=== PATIENT | male | born 1995 | race Caucasian/White ===

== ENCOUNTER 2017-04-14 14:05 | Emergency (ER) | payer OTHER ==
--- NOTE | 2017-04-14 15:06 | EDM.PDOC ---
ED HPI GENERAL MEDICAL PROBLEM - General Chief Complaint: Upper Extremity Injury/Pain Stated Complaint: LEFT POINTER FINGER CUT Time Seen by Provider: 04/14/17 15:08 Source of Information: Reports: Patient History Limitations: Reports: No Limitations - History of Present Illness INITIAL COMMENTS - FREE TEXT/NARRATIVE: HISTORY AND PHYSICAL: History of present illness: [Patient comes to the emergency room complaining of a crush injury to his left index finger. Was hauling pipes with a coworker when his finger was smashed between 2 pipes. Complained of immediate pain and bleeding. Occurred about one hour prior to ER arrival.] Review of systems: As per history of present illness and below otherwise all systems reviewed and negative. Past medical history: As per history of present illness and as reviewed below otherwise noncontributory. Surgical history: As per history of present illness and as reviewed below otherwise noncontributory. Social history: No reported history of drug or alcohol abuse. Family history: As per history of present illness and as reviewed below otherwise noncontributory. Physical exam: HEENT: Atraumatic, normocephalic. Extremities: L index finger shows a superficial laceration to base of fingernail. Questionable fingernail avulsion. No injury or laceration to palmar side of hand. Remaining fingers are atraumatic. Neuro: Awake, alert, oriented. Motor and sensory unremarkable throughout. Exam nonfocal. Diagnostics: [L index finger x-ray] Impression: [L index finger pain s/p crush injury] Plan: [Discussed with patient that his x-ray shows no fractures. Dr. Carolina Silverman agrees to see patient in the clinic at 7:30 tomorrow morning. Patient is agreeable to this appointment. Bacitracin is applied and the wound is dressed with sterile 4 x 4's and tube gauze. His tetanus is up-to-date. Tylenol or ibuprofen for discomfort. He is in agreement with today's plan. All questions are answered and concerns are addressed.] Definitive disposition and diagnosis as appropriate pending reevaluation and review of above. Left 2-Index finger Pain Score (Numeric/FACES): 4 - Related Data Allergies Allergy/AdvReac Type Severity Reaction Status Date / Time No Known Allergies Allergy Verified 04/14/17 14:44 Home Meds: Home Meds . [No Known Home Meds] 04/14/17 [History] Past Medical History - Past Health History Medical/Surgical History: Denies Medical/Surgical History Social & Family History - Family History Family Medical History: Noncontributory - Tobacco Use Smoking Status *Q: Current Every Day Smoker Years of Tobacco use: 5 Packs/Tins Daily: 0.5 - Caffeine Use Caffeine Use: Reports: Coffee, Soda - Recreational Drug Use Recreational Drug Use: No Review of Systems - Review of Systems Review Of Systems: ROS reveals no pertinent complaints other than HPI. ED EXAM, GENERAL - Physical Exam Exam: See Below Course - Vital Signs Last Recorded V/S: Last Vital Signs Temp 97.4 F 04/14/17 16:31 Pulse 72 04/14/17 16:31 Resp 18 04/14/17 16:31 BP 134/78 04/14/17 16:31 Pulse Ox 97 04/14/17 16:31 - Orders/Labs/Meds Meds: Medications Discontinued Medications Generic Name Dose Route Start Last Admin Trade Name Katia PRN Reason Stop Dose Admin Bacitracin 1 dose 04/14/17 15:57 04/14/17 16:21 Bacitracin Oint 1 Gm TOP 04/14/17 15:58 1 dose ONETIME ONE Administration Departure - Departure Time of Disposition: 16:05 Disposition: Home, Self-Care 01 Condition: Good Clinical Impression: Finger pain, left - Discharge Information Instructions: Contusion, [id number] Referrals: Irma Silverman MD [Physician] - (patient will see at 0730am in clinic per dr. silverman nurse) PCP,None [Primary Care Provider] - Forms: ED Department Discharge Additional Instructions: The following information is given to patients seen in the emergency department who are being discharged to home. This information is to outline your options for follow-up care. We provide all patients seen in our emergency department with a follow-up referral. The need for follow-up, as well as the timing and circumstances, are variable depending upon the specifics of your emergency department visit. If you don't have a primary care physician on staff, we will provide you with a referral. We always advise you to contact your personal physician following an emergency department visit to inform them of the circumstance of the visit and for follow-up with them and/or the need for any referrals to a consulting specialist. The emergency department will also refer you to a specialist when appropriate. This referral assures that you have the opportunity for follow-up care with a specialist. All of these measure are taken in an effort to provide you with optimal care, which includes your follow-up. Under all circumstances we always encourage you to contact your private physician who remains a resource for coordinating your care. When calling for follow-up care, please make the office aware that this follow-up is from your recent emergency room visit. If for any reason you are refused follow-up, please contact the [facility] emergency department at and asked to speak to the emergency department charge nurse. [facility] Specialty care- [facility] [address] [place] [address], [address] [place] [address] We've scheduled an appointment for you to see the hand specialist at the clinic listed above for 7:30 tomorrow morning. Tylenol alternating with ibuprofen as needed for discomfort. Keep hand elevated above the level of your heart to reduce throbbing. Return to ER as needed as discussed.
--- NOTE | 2017-04-14 15:49 | CR ---
EXAMINATION: Left hand, second digit HISTORY: Smashed finger COMPARISON: None TECHNIQUE: 3 views FINDINGS/IMPRESSION: Mild soft tissue swelling noted over the distal aspect of the second digit witho ut an acute osseous abnormality. Bone mineralization and joint spaces appear normal.
[2017-04-14] MEDS ORDERED: Bacitracin Oint 1 GM U/D Packet TOP ONE (15:57)
== END 2017-04-14 16:31 | disposition home or self-care (01) ==
LOC: MW.ED 14:05
DX: S61.211A Laceration without foreign body of left index finger without damage to nail, initial encounter (principal); F17.210 Nicotine dependence, cigarettes, uncomplicated; W23.1XXA Caught, crushed, jammed, or pinched between stationary objects, initial encounter
CPT/HCPCS: 73140-26-F1; 73140-F1; 99283